=== PATIENT | female | born 1950 | race Caucasian/White ===

== ENCOUNTER 2016-12-07 17:26 | Emergency (ER) | payer MEDICARE, OTHER ==
[~2016-12-07 17:26] MED LIST: AVELOX400 MG PO; CATAPRES-DPS0.1 MG PO; CENTRUM SILVER1 EAC1 PO; DUREZOL5 ML OS; ELAVIL-DPS10 MG PO; GLUCOPHAGE-DPS500 MG PO; IBUPROFEN200 M1 PO; NORVASC5 MG PO; NUCYNTA50 MG PO; OCEAN NASAL MIS45 ML NS; PEPCID DPS20 MG PO; REGLAN DPS5 MG PO; SALINE NASAL SP88 ML NS; SYNTHROID100 MCG PO; TYLENOL DPS325 MG PO; XANAX DPS0.25 MG PO; ZYRTEC DPS10 MG PO; [UNRECOGNIZED DRUG - OTHER] OS
--- NOTE | 2017-01-03 08:22 | ER ---
ADMIT: 12/07/2016 RM/LOC: ER [facility] MR#: [id number] [address] [id number] ASIM SANTILLAN [address] [place] [address] Emergency Room Report SEX: F AGE: 66 : 1950 DATE: 12/07/2016 ADDENDUM: HISTORY OF PRESENT ILLNESS: This patient comes to the ER because she has had abdominal pain for the last 2 days. She also feels like she is dehydrated, she is very nauseated and has had a loss of appetite, unable to the eat. PHYSICAL EXAMINATION: GENERAL: She looks and appears healthy, answers questions and speaks appropriately. VITAL SIGNS: Temperature 97.6, respirations 16, heart rate 69, blood pressure is 160/73, pulse ox 97% on room air. ABDOMEN: Her pain seems to be right above the pubic symphysis. There is no rebound tenderness or guarding or tenderness to percussion of either flank area. HEART: Regular rate and rhythm. LUNGS: Clear to auscultation. LABORATORY DATA: CBC, BMP were normal. Urinalysis showed +3 leukocyte esterase, and 8 wbc's. DIAGNOSES: 1. Abdominal pain. 2. Urinary tract infection. DISCUSSION: IV of normal saline was started. She was given a liter of bolus with morphine. She is also given Reglan 10 mg IV. I wrote a prescription for Cipro. She is to push fluids, take Cipro and follow up with Dr. Alcantara in the next few days if she is not feeling better. Return to the ER or see Dr. Alcantara sooner if not keeping fluids and medication down. AFSANEH Cain / Daljit Coulter MD / liz JOB #: [id number] CC: Daljit Coulter MD, Attending Physician Tejas Alcantara MD, Family Physician
== END 2016-12-07 21:31 | disposition home or self-care (01) ==
LOC: ER 17:26
DX: N39.0 Urinary tract infection, site not specified (principal); I10 Essential (primary) hypertension; E11.9 Type 2 diabetes mellitus without complications; Z85.3 Personal history of malignant neoplasm of breast; Z98.890 Other specified postprocedural states; Z88.0 Allergy status to penicillin; Z88.8 Allergy status to other drugs, medicaments and biological substances; Z79.899 Other long term (current) drug therapy